=== PATIENT | female | born 1995 | race Two or more races ===

== ENCOUNTER 2023-11-18 11:23 | Inpatient (IN) | payer OTHER ==
[2023-11-18] MEDS: ELECTROLYTE-148 SOLN 500 ML IV ONE (12:15)
[2023-11-18] MEDS: ELECTROLYTE-148 SOLN 500 ML IV SCH (13:21)
[2023-11-18] MEDS ORDERED: NIFEdipine 10 MG CAPSULE (FP) ONE ×2 (16:01→18:14)
[2023-11-18] MEDS: NIFEdipine 10 MG CAPSULE (FP) PO ONE ×2 (16:05→18:15)
[2023-11-18 16:43] LABS: PH,URINE 7.5 (5.0-8.0); URINE APPEARANCE CLEAR; URINE BILIRUBIN NEGATIVE (NEGATIVE); URINE COLOR YELLOW; URINE GLUCOSE (UA) NEGATIVE (NEGATIVE); URINE KETONE 2+ (NEGATIVE); URINE LEUK ESTERASE NEGATIVE (NEGATIVE); URINE NITRITE NEGATIVE (NEGATIVE); URINE PROTEIN NEGATIVE (NEGATIVE); URINE UROBILINOGEN 0.2 mg/dL (0.2-1.0)
[2023-11-18] MEDS ORDERED: BETAMET ACET/BETAMET NA PH 30 MG/5 ML VIAL ONE (17:09)
[2023-11-18] MEDS: BETAMET ACET/BETAMET NA PH 30 MG/5 ML VIAL IM SCH (17:15)
[2023-11-18] MEDS ORDERED: MAGNESIUM 4GM/H20 - 4 GM/100 ML IVPB IVPB ONE (20:16)
[2023-11-18] MEDS: MAGNESIUM 4GM/H20 - 4 GM/100 ML IVPB IVPB ONE (20:20)
[2023-11-18 20:33] LABS: BASO % 0.4 % (0-2.0); EOS % 0.1 % (0-4.5); HEMATOCRIT 31.1 % (32.4-45.2); HEMOGLOBIN 10.5 GM/dL (10.7-15.3); LYMPH % 7.8 % (8-40); MCH 29.4 pg (25.7-33.7); MCHC 33.6 g/dl (32.0-36.0); MEAN CELL VOLUME 87.7 fl (80-96); MEAN PLT VOLUME 7.7 fl (7.5-11.1); MONO % 1.8 % (3.8-10.2); NEUT % 89.9 % (42.8-82.8); PLATELET COUNT 216 10^3/uL (134-434); RBC 3.55 M/mm3 (3.60-5.2); RDW 13.6 % (11.6-15.6); WHITE BLOOD COUNT 14.4 K/mm3 (4.0-10.0)
[2023-11-18 20:43] LABS: INR 0.98 (0.83-1.09); PROTHROMBIN TIME (PATIENT) 11.3 SEC (9.7-13.0)
[2023-11-18 20:46] LABS: ACTIVATED PTT 28.6 SECONDS (25.2-36.5)
[2023-11-18 20:54] LABS: POTASSIUM 3.9 mmol/L (3.5-5.1)
[2023-11-18 20:55] LABS: CALCIUM 7.5 mg/dL (8.5-10.1)
[2023-11-18 20:56] LABS: BLOOD UREA NITROGEN 6.6 mg/dL (7-18)
[2023-11-18 20:59] LABS: CREATININE 0.4 mg/dL (0.55-1.3)
[2023-11-18] MEDS ORDERED: MAGNESIUM SULFATE 20GM/500ML - 20 GM/500 ML INFUS.BAG ONE (21:11)
[2023-11-18] MEDS: MAGNESIUM SULFATE 20GM/500ML - 20 GM/500 ML INFUS.BAG IVPB SCH (21:20)
[2023-11-19 01:59] VITALS: BMI 41.2
[2023-11-19] MEDS: AMPICILLIN - 2 GM in SODIUM CHLORIDE 100 ML IVPB SCH (02:00)
[2023-11-19] MEDS ORDERED: SODIUM CHLORIDE 100 ML IVPB ONE (02:12)
[2023-11-19] MEDS ORDERED: AMPICILLIN SODIUM 2 GM VIAL ONE ×3 (02:13→18:20)
[2023-11-19] MEDS ORDERED: MAGNESIUM SULFATE 20GM/500ML - 20 GM/500 ML INFUS.BAG ONE (08:14)
[2023-11-19 13:40] LABS: MAGNESIUM 5.1 mg/dL (1.8-2.4)
[2023-11-19] MEDS ORDERED: BETAMET ACET/BETAMET NA PH 30 MG/5 ML VIAL ONE (16:57)
[2023-11-19] MEDS: MICONAZOLE NITRATE 200 MG VAGINAL SUPPOSITORY PV SCH (22:41)
[2023-11-20 10:33] VITALS: BP 114/72; PULSE 97; RESP 16; TEMP 98.6
== END 2023-11-20 13:00 | disposition home or self-care (01) | DRG 563 ==
LOC: JDEL 11:23 → JLDR 19:40 → J3W 11-19 22:01
PROVIDERS: ADMIT Obstetrics & Gynecology; ATTEND Obstetrics & Gynecology
DX: O60.03 Preterm labor without delivery, third trimester (principal); O99.213 Obesity complicating pregnancy, third trimester; Z3A.31 31 weeks gestation of pregnancy
CPT/HCPCS: 36415; 76819-TC; 80048; 81003; 83735; 85025; 85610; 85730; 86780; 86850; 86900; 86901; 87086; 87491; 87591; 87661; 96372

== ENCOUNTER 2023-12-26 08:40 | Inpatient (IN) | payer OTHER ==
[2023-12-26] MEDS: ELECTROLYTE-148 SOLN 1,000 ML IV SCH (10:30)
[2023-12-26 10:36] VITALS: BMI 41.5
[2023-12-26 12:29] LABS: BASO % 0.6 % (0-2.0); EOS % 0.5 % (0-4.5); HEMATOCRIT 34.1 % (32.4-45.2); HEMOGLOBIN 11.7 GM/dL (10.7-15.3); LYMPH % 19.3 % (8-40); MCH 29.6 pg (25.7-33.7); MCHC 34.4 g/dl (32.0-36.0); MEAN CELL VOLUME 85.9 fl (80-96); MEAN PLT VOLUME 8.3 fl (7.5-11.1); MONO % 6.6 % (3.8-10.2); PLATELET COUNT 214 10^3/uL (134-434); RBC 3.96 M/mm3 (3.60-5.2); RDW 13.5 % (11.6-15.6); WHITE BLOOD COUNT 11.8 K/mm3 (4.0-10.0)
[2023-12-26 12:32] LABS: INR 0.92 (0.83-1.09); PROTHROMBIN TIME (PATIENT) 10.6 SEC (9.7-13.0)
[2023-12-26 12:35] LABS: ACTIVATED PTT 28.3 SECONDS (25.2-36.5)
[2023-12-26] MEDS ORDERED: AMPICILLIN SODIUM 2 GM VIAL ONE ×2 (12:44→12:45)
[2023-12-26] MEDS ORDERED: NALOXONE HCL 0.4 MG/ML VIAL IVPUSH PRN (12:44)
[2023-12-26] MEDS: AMPICILLIN - 2 GM in SODIUM CHLORIDE 100 ML IVPB ONE (12:45)
[2023-12-26] MEDS ORDERED: FENTANYL CITRATE/PF 50 MCG/ML VIAL ONE (12:53)
[2023-12-26] MEDS ORDERED: BUPIVACAINE HCL/PF 0.25% (2.5MG/ML) 10 ML VIAL ONE (12:53)
[2023-12-26] MEDS ORDERED: FENTANYL/BUPIVACAINE/NS/PF - PCEA - 50 ML DISP.SYRIN EP ONE (12:54)
[2023-12-26 13:02] LABS: POTASSIUM 4.2 mmol/L (3.5-5.1)
[2023-12-26 13:04] LABS: CALCIUM 8.7 mg/dL (8.5-10.1)
[2023-12-26 13:06] LABS: BLOOD UREA NITROGEN 7.3 mg/dL (7-18)
[2023-12-26 13:09] LABS: CREATININE 0.5 mg/dL (0.55-1.3)
[2023-12-26] MEDS: FENTANYL/BUPIVACAINE/NS/PF - PCEA - 50 ML DISP.SYRIN EP SCH (13:10)
[2023-12-26] MEDS: OXYTOCIN 30 UNITS in 0.9% NS 30 UNIT/500 ML INFUS.BAG IVPB SCH (13:45)
[2023-12-26] MEDS ORDERED: OXYTOCIN 30 UNITS in 0.9% NS 30 UNIT/500 ML INFUS.BAG IVPB ONE (13:49)
[2023-12-26] MEDS ORDERED: OXYTOCIN 20 UNITS in 0.9% NS 20 UNIT/1,000 ML INFUS.BAG IV ONE (16:06)
[2023-12-26] MEDS ORDERED: BENZOCAINE 20% 57 GM BOTTLE TP PRN (16:31)
[2023-12-26] MEDS ORDERED: WITCH HAZEL 50% (TUCKS) 40 PAD/JAR PAD TP PRN (16:31)
[2023-12-26] MEDS ORDERED: METHYLERGONOVINE MALEATE 0.2 MG/1 ML AMP IM PRN (16:31)
[2023-12-26] MEDS ORDERED: BISACODYL 10 MG SUPP.RECT RC PRN (16:31)
[2023-12-26] MEDS ORDERED: oxyCODONE HCL 5 MG TABLET PO PRN (16:31)
[2023-12-26] MEDS ORDERED: BENZOCAINE 28 GM HEMORRHOIDAL OINTMENT TP PRN (16:31)
[2023-12-26] MEDS: OXYTOCIN 20 UNITS in 0.9% NS 20 UNIT/1,000 ML INFUS.BAG IV SCH (16:45)
[2023-12-26 17:19] LABS: CORD HCO3 23.6 mmHg (20-29); CORD PCO2 43.2 mmHg (30-78); CORD pH 7.356 (7.14-7.44)
[2023-12-26 17:23] LABS: CORD BASE EXCESS -3.2 mmol/L (0-2); CORD HCO3 23.5 mmHg (20-29); CORD PCO2 48.4 mmHg (30-78); CORD pH 7.305 (7.14-7.44)
[2023-12-26] MEDS ORDERED: AMPICILLIN SODIUM 1 GM VIAL ONE (17:32)
[2023-12-26] MEDS: AMPICILLIN - 1 GM in SODIUM CHLORIDE 100 ML IVPB SCH (18:27)
[2023-12-26] MEDS ORDERED: IBUPROFEN 600 MG TABLET (FP) PO ONE (19:50)
[2023-12-26] MEDS: IBUPROFEN 600 MG TABLET (FP) PO PRN (19:53)
[2023-12-27 08:12] LABS: BASO % 0.8 % (0-2.0); EOS % 0.8 % (0-4.5); HEMATOCRIT 32.7 % (32.4-45.2); HEMOGLOBIN 10.9 GM/dL (10.7-15.3); LYMPH % 17.8 % (8-40); MCH 29.2 pg (25.7-33.7); MCHC 33.3 g/dl (32.0-36.0); MEAN CELL VOLUME 87.7 fl (80-96); MEAN PLT VOLUME 9.1 fl (7.5-11.1); MONO % 4.8 % (3.8-10.2); NEUT % 75.8 % (42.8-82.8); PLATELET COUNT 198 10^3/uL (134-434); RBC 3.72 M/mm3 (3.60-5.2); RDW 13.5 % (11.6-15.6); WHITE BLOOD COUNT 14.2 K/mm3 (4.0-10.0)
[2023-12-27 09:30] LABS: POC NITRAZINE POS
[2023-12-27] MEDS: PRENATAL VITAMINS W/ FOLIC ACID TABLET (FP) PO SCH (15:44)
[2023-12-27 20:21] VITALS: RESP 18
[2023-12-27] MEDS: SENNOSIDES/DOCUSATE COMBO (SENNA PLUS) TABLET (UD) PO PRN (22:44)
[2023-12-28 09:44] VITALS: BP 126/82; PULSE 60; TEMP 98.3
[2023-12-28] MEDS: ACETAMINOPHEN 325 MG TABLET (FP) PO PRN (10:57)
== END 2023-12-28 13:20 | disposition home or self-care (01) | DRG 560 ==
LOC: JDEL 08:40 → JLDR 09:50 → J3W 19:30
PROVIDERS: ADMIT Obstetrics & Gynecology; ATTEND Obstetrics & Gynecology
PROC: 10E0XZZ Delivery of Products of Conception, External Approach (ICD-10-PCS; principal; 2023-12-26)
DX: O60.14X0 Preterm labor third trimester with preterm delivery third trimester, not applicable or unspecified (principal); O99.214 Obesity complicating childbirth; O42.913 Preterm premature rupture of membranes, unspecified as to length of time between rupture and onset of labor, third trimester; Z3A.36 36 weeks gestation of pregnancy; O12.14 Gestational proteinuria, complicating childbirth; Z37.0 Single live birth
CPT/HCPCS: 36415; 36600; 59409; 80048; 82803; 83986-QW; 85025; 85610; 85730; 86780; 86850; 86900; 86901